=== PATIENT | male | born 1940 | race Caucasian/White ===

== ENCOUNTER 2016-12-09 19:05 | Observation (INO) | payer MEDICARE, BC ==
[~2016-12-09] VITALS: Ht 182.9 cm; Wt 103.3 kg
[~2016-12-09 19:05] MED LIST: AMBIEN 10MG10 MG PO; ASPI325T6 PO; CELEXA 20MG20 MG/TAB PO; D-31000 IU PO; LEVOXYL0.1 MG PO; LIPITOR 40MG TA40 MG PO; NORCO 325 MG-51 TAB PO; OMEGA-3 FISH1200 MG PO
[2016-12-09] MEDS ORDERED: CELEXA40 MG PO (19:44)
[2016-12-09] MEDS ORDERED: KLONOPIN 0.5MG0.5 MG PO (19:46)
[2016-12-09] MEDS ORDERED: FLOMAX 0.40.4 MG/CAP PO (19:46)
[2016-12-09] MEDS ORDERED: OMEGA-3 1000 MG1 CAP PO (19:48)
[2016-12-09 19:54] LABS: BASO # 0.1 (0.0-0.2); BASO % 0.5 % (0.0-2.0); EOS % 0.4 % (0-4.0); GRAN # 9.6 (1.4-6.5); GRAN % 86.7 % (42.2-75.2); HEMATOCRIT 42.9 % (42.0-52.0); HEMOGLOBIN 14.8 g/dl (13.5-18.0); LYMPH # 0.4 (1.2-3.4); LYMPH % 3.9 % (20.0-51.0); MEAN CELL VOLUME 92 fl (80.0-100.0); MEAN CORPUSCULAR HEMOGLOBIN 32 pg (27.0-31.0); MEAN CORPUSCULAR HGB CONC 35 g/dl (33.0-37.0); MEAN PLATELET VOLUME 10.7 fl (7.4-10.4); MONO # 0.9 (0.1-0.6); PLATELET COUNT 120 K/mm3 (130-400); RED BLOOD COUNT 4.68 M/mm3 (4.20-5.60); REDCELL DISTRIBUTION WIDTH-CV 12.2 % (11.5-14.5); WHITE BLOOD COUNT 11.1 K/mm3 (4.8-10.8)
[2016-12-09 19:58] LABS: ADJUSTED CALCIUM 9.4 mg/dL (8.4-10.2); ALANINE AMINOTRANSFERASE 39 U/L (21-72); ALBUMIN 4.3 gm/dL (3.5-5.0); ALKALINE PHOSPHATASE 76 U/L (50-136); ANION GAP 13 mmol/L (7-16); BILIRUBIN,TOTAL 1.3 mg/dL (0.0-1.0); BLOOD UREA NITROGEN 16 mg/dL (9-20); CALCIUM 9.6 mg/dL (8.4-10.2); CARBON DIOXIDE 25 mmol/L (22-30); CHLORIDE 102 mmol/L (98-107); CREATININE, serum 1.22 mg/dL (0.66-1.25); GLUCOSE 140 mg/dL (74-106); POTASSIUM 3.9 mmol/L (3.4-5.0); SODIUM 140 mmol/L (137-145); TOTAL PROTEIN 7.3 gm/dL (6.4-8.2)
[2016-12-09 20:08] LABS: INFLUENZA B NEGATIVE
[2016-12-09 20:10] LABS: B-TYPE NATRIURETIC PEPTIDE 200 pg/mL (0-450); TROPONIN-I < 0.012 ng/mL (0.000-0.034)
[2016-12-09 22:39] VITALS: BP 108/54; PULSE 67; TEMP 98.4
[2016-12-10 03:48] VITALS: BP 94/45; PULSE 64; TEMP 96.8
[2016-12-10 08:13] VITALS: BP 108/34; PULSE 47; TEMP 98.3
[2016-12-10 08:21] LABS: BASO % 0.7 % (0.0-2.0); EOS # 0.1 (0.0-0.7); EOS % 1.7 % (0-4.0); GRAN # 4.1 (1.4-6.5); GRAN % 74.6 % (42.2-75.2); HEMATOCRIT 40.7 % (42.0-52.0); HEMOGLOBIN 13.4 g/dl (13.5-18.0); LYMPH # 0.5 (1.2-3.4); LYMPH % 8.6 % (20.0-51.0); MEAN CELL VOLUME 96 fl (80.0-100.0); MEAN CORPUSCULAR HEMOGLOBIN 32 pg (27.0-31.0); MEAN CORPUSCULAR HGB CONC 33 g/dl (33.0-37.0); MONO # 0.8 (0.1-0.6); MONO % 13.8 % (1.7-9.3); PLATELET COUNT 111 K/mm3 (130-400); RED BLOOD COUNT 4.26 M/mm3 (4.20-5.60); REDCELL DISTRIBUTION WIDTH-CV 12.8 % (11.5-14.5); WHITE BLOOD COUNT 5.5 K/mm3 (4.8-10.8)
[2016-12-10 09:04] LABS: CALCIUM 8.6 mg/dL (8.4-10.2); CREATININE, serum 1.13 mg/dL (0.66-1.25); POTASSIUM 3.5 mmol/L (3.4-5.0)
[2016-12-10 09:29] LABS: THYROID STIMULATING HORMONE 1.68 uIU/mL (0.465-4.680)
[2016-12-10 12:14] VITALS: BP 104/52; PULSE 101; TEMP 98.2
[2016-12-10 15:48] VITALS: BP 112/54; PULSE 84; TEMP 98.3
[2016-12-10 17:33] LABS: PH 5 (5-8); SQUAMOUS EPITHELIAL 0-2 /hpf; URINE APPEARANCE Hazy; URINE BACTERIA None Seen /hpf; URINE BILIRUBIN Negative (NEGATIVE); URINE BLOOD Negative (NEGATIVE); URINE COLOR Yellow; URINE GLUCOSE Negative (NEGATIVE); URINE KETONE Negative (NEGATIVE); URINE RBC 0-2 /hpf; URINE UROBILINOGEN Negative (NEGATIVE); URINE WBC 0-2 /hpf
[2016-12-10 20:34] VITALS: BP 114/51; PULSE 63; TEMP 99.1
[2016-12-10 23:41] VITALS: BP 130/53; PULSE 44; TEMP 98.3
[2016-12-11 02:53] VITALS: BP 113/50; PULSE 50; TEMP 99
[2016-12-11 08:25] VITALS: BP 122/57; PULSE 55; TEMP 97.8
[2016-12-11 08:45] LABS: BASO % 0.5 % (0.0-2.0); EOS % 0.7 % (0-4.0); GRAN # 3.4 (1.4-6.5); GRAN % 56.4 % (42.2-75.2); HEMATOCRIT 34.7 % (42.0-52.0); HEMOGLOBIN 11.5 g/dl (13.5-18.0); LYMPH # 1.5 (1.2-3.4); LYMPH % 24.4 % (20.0-51.0); MEAN CELL VOLUME 94 fl (80.0-100.0); MEAN CORPUSCULAR HEMOGLOBIN 31 pg (27.0-31.0); MEAN CORPUSCULAR HGB CONC 33 g/dl (33.0-37.0); MEAN PLATELET VOLUME 10.9 fl (7.4-10.4); MONO % 17.3 % (1.7-9.3); PLATELET COUNT 102 K/mm3 (130-400); RED BLOOD COUNT 3.69 M/mm3 (4.20-5.60); WHITE BLOOD COUNT 5.9 K/mm3 (4.8-10.8)
[2016-12-11] MEDS ORDERED: ZITHROMAX 250M250 MG PO (09:43)
[2016-12-11] MEDS ORDERED: PREDNISONE20 MG PO (09:46)
== END 2016-12-11 11:34 | disposition home or self-care (01) ==
LOC: COL.ER 19:05 → MEDICAL 21:58
PROVIDERS: Emergency Medicine; Internal Medicine; Physician Assistant
DX: J20.9 Acute bronchitis, unspecified (principal); R53.81 Other malaise; R41.82 Altered mental status, unspecified; F03.90 Unspecified dementia, unspecified severity, without behavioral disturbance, psychotic disturbance, mood disturbance, and anxiety; I95.9 Hypotension, unspecified; F41.8 Other specified anxiety disorders; E78.5 Hyperlipidemia, unspecified; G47.33 Obstructive sleep apnea (adult) (pediatric)
CPT/HCPCS: G0378; G8978-GP; G8979-GP; J1644; J7030; J7512